=== PATIENT | male | born 1990 | race Caucasian/White ===

== ENCOUNTER 2021-08-25 04:05 | Emergency (ER) | payer SELFPAY ==
[~2021-08-25] VITALS: Ht 177.8 cm; Wt 90.7 kg
--- NOTE | 2021-08-25 04:05 | NUR ---
PT MARIE KURTZ, PREBOOK. TAKEN TO CHAIR
[2021-08-25 04:12] VITALS: BP 113/88
--- NOTE | 2021-08-25 04:15 | NUR ---
Dr. Lemos examining patient.
[2021-08-25 04:27] VITALS: BP 113/88
--- NOTE | 2021-08-25 04:28 | NUR ---
Patient discharged with v/s stable. Written and verbal after care instructions given and explained. Patient verbalized understanding. Police with in custody. All questions addressed prior to discharge. Advised to follow up with PMD. VSS, A/OX4, AMBULATORY, UNLABORED BREATHING, AND CALM DEMEANOR. ER MD EVALUATED. NO NURSING INTERVENTIONS NEEDED.
--- NOTE | 2021-08-25 04:51 | NUR ---
ACCOMPANIED BY ALANNA KURTZ. OFICER #[id number]
== END 2021-08-25 04:28 ==
LOC: MED 04:05
DX: Z02.89 Encounter for other administrative examinations (principal); H02.846 Edema of left eye, unspecified eyelid; F17.210 Nicotine dependence, cigarettes, uncomplicated; Y04.0XXA Assault by unarmed brawl or fight, initial encounter; Y92.89 Other specified places as the place of occurrence of the external cause; Y93.89 Activity, other specified; Y99.8 Other external cause status
CPT/HCPCS: 99283